=== PATIENT | female | born 1955 | race Caucasian/White ===

== ENCOUNTER 2023-08-31 08:43 | Outpatient (REF) | payer MEDICARE, SELFPAY ==
[2023-08-31 10:26] LABS: Erythrocyte Sedimentation Rate 3 MM/HR (0-20)
[2023-09-01 17:33] LABS: Lyme Abs Screen <0.90 index
== END 2023-08-31 08:44 | disposition home or self-care (01) ==
LOC: HO.LAB 08:43
PROVIDERS: PCP Internal Medicine; Visit Provider Psychiatry & Neurology Neurology
DX: R25.1 Tremor, unspecified (principal)
CPT/HCPCS: 36415; 85652; 86617; 86618

== ENCOUNTER 2025-07-09 08:27 | Outpatient (AMB) | payer MEDICARE, SELFPAY ==
--- OUTSIDE RECORDS SUMMARY | 2025-04-02 05:30 | XMS_ITS ---
Author Organization [facility] [address] Address [address] [place] [address] Care Team Providers Care Die Mounter Name Role Phone NEVA TORRES Primary Care Provider Debby Betancur Unavailable [phone] REASON FOR VISIT labs Medications Medication SIG (Take, Route, Frequency, Duration) Notes Start Date End Date Status Multi For Her - as directed Orally A S NEEDED Active Magnesium Glycinate Active Synthroid 88 MCG 1 tablet in the morning on an empty stomach Orally Once a day; Duration: 90 days 6 days/week Active Cyclobenzaprine HCl 5 MG every 8 hours a s needed Orally Once a day; Duration: 30 days prn 02/07/2021 Active Famotidine 20 MG TAKE 1 TABLET ONCE DAILY; Duration: 90 Active Raloxifene HCl 60 MG TAKE 1 TABLET ONCE DAILY; Duration: 90 Active Verapamil HCl 120 MG 1 tablet Orally onc e daily Active Encounters Encounter Location Date Provider Diagnosis [facility] [address] [address] 04/02/2025 Debby Betancur Plan Of Treatment Next Appt Details Provider Name:Debby Betancur, 0 10/17/2025 08:30:00 AM, [address], [id number], Provider Name:Debby Betancur, 0 07/09/2026 08:00:00 AM, [address] [place] [address], [id number], Progress Notes * SHARMIN PARHAMOB: [birth year] (69 yo F)Acc No.[id number]:04/02/2025 Progress Notes Patient: FELIX JOHNSON Provider: Norris Betancur PA-C :1955 A ge:69 Y S ex:Female Date:04/02/2025 Address:[address] [place] [address], [id number] Pcp:NEVA TORRES Subjective: * Chief Complaints: * 1 . Labs. * Medical History: * Medications: T aking Verapamil HCl 120 MG Tablet 1 tablet Orally once daily , Taking Magnesium Glycinate , Taking Multi For Her - Tablet as directed Orally NEEDED , Taking Cyclobenzaprine HCl 5 MG Tablet every 8 hours as needed Orally Once a day , Notes to Pharmacist: prn, Taking Synthroid 88 MCG Tablet 1 tablet in the morning on an empty stomach Orally Once a day , Notes to Pharmacist: 6 days/week, Taking Famotidine 20 MG Tablet TAKE 1 TABLET ONCE DAILY , Taking Raloxifene HCl 60 MG Tablet TAKE 1 TABLET ONCE DAILY , Discontinued predniSONE 20 MG Tablet 2 tablets Orally Once a day Objective: * Vitals: Assessment: Plan: * Treatment: * Images: Billing Information: * Visit Code: * Procedure Codes: Care Plan Details* * Electronic signature of Debby Betancur PA-C on 07/09/2025 at 08:50 AM EDT Sign off status: Pending * Provider: Norris Betancur PA-C Date: 04/02/2025 Generated for Love diaz/John/Magalys on: 0 07/09/2025 08:50 AM EDT
--- NOTE | 2025-07-09 08:34 | A.OFFVIS_ITS ---
Intake Visit Reasons: 6 Months F/U Allergies No Known Allergies Allergy (Verified 07/05/25 09:23) HPI Comments Details: 69 years old right-handed woman with tremor and idiopathic stabbing type of headaches. She was still having headaches anywhere from 15-50 episodes in a day. It was lasting for a second or so. It was like her brain was jolted. EEG was ok. She is presenting with the requirement for medication refills and the management of headaches. She had encountered issues with her prescription being filled, which she rectified by obtaining a verbal authorization for a local pharmacy fill due to her travel plans. The patient's headaches are described as intermittent and stabbing in nature, occasionally occurring but significantly reduced in frequency since initiating Verapamil. The patient confirmed toleration of the medication, with a lack of significant gastrointestinal side effects such as constipation. She has been compliant with her regimen and successfully adjusted her dosage under medical advice after an initial test dose proved inadequate. Preparing for travel, she has ensured medication continuity and has taken precautions in storing her medications. [facility] Medical History (Updated 07/09/25 @ 08:44 by Kathleen Gonzalez MD) Seizure disorder Migraine Review of Systems Const Details: - Neurologic: Reports headaches - Gastrointestinal: Denies constipation Physical Exam Neuro Other: Mental Status: Alert and oriented to person, place, and time. Normal attention. Normal spontaneous speech, fluency, and comprehension. No obvious issues with mood and memory. Affect is appropriate. Cranial Nerves: CN II: Visual yoo full to confrontation, visual acuity intact. CN III, IV, : Pupils equal, round, reactive to light and accommodation. Extraocular movements are normal. CN V: Facial sensation is normal. CN VII: Facial movements symmetrical. CN VIII: Hearing intact to bedside conversation is normal. CN IX, X: Palate elevates symmetrically. CN XI: Shoulder shrug and head turn symmetrical. CN XII: Tongue midline without atrophy or fasciculations. Extrapyramidal: Full facial expressions and blinking. No rigidity. Movements are appropriate with no tremor or abnormality. Speech: Normal; no dysarthria or tremor. Assessment & Plan Assessment & Plan (1) Idiopathic stabbing headache: Comment: Meds tried: Topiramate, melatonin [facility]ine [facility] Sep [facility]: WNL MRI brain WO [facility] in Jul 2024: No sig change MRI brain WO at [place] in Aug 2023; A few non specific small WM hyperintensities in right frontal area. Code(s): G44.85 - Primary stabbing headache Category: Medical (2) Tremor: Code(s): R25.1 - Tremor, unspecified Category: Medical (3) Migraine: Code(s): G43.909 - Migraine, unspecified, not intractable, without status migrainosus Category: Medical Qualifiers: Migraine type: migraine (< 15 days per month) without aura Status migrainosus presence: without status migrainosus Intractability: not intractable Qualified Code(s): G43.009 - Migraine without aura, not intractable, without status migrainosus Plan During the visit, we discussed the patient's ongoing requirement for Verapamil and its efficacy in managing her headaches. We talked about her previous dose adjustments and current dosage satisfaction, emphasizing caution about side effects such as constipation. The patient has been instructed on medication management during her travel, including taking ample supplies and correctly packaging them. I reassured her about traveling with her medication, noting that it is a non-controlled substance. Follow-up was tentatively set for one year, with contingency if any changes arise. Medications: Refilled verapamil ER 120 mg PO DAILY 90 tabs 3RF Coding Level of Care Code Est Pt Level 4 (24983) Diagnoses Idiopathic stabbing headache G44.85 Tremor R25.1 Migraine without aura and without status migrainosus, not intractable G43.009 Migraine type: migraine (< 15 days per month) without aura Status migrainosus presence: without status migrainosus Intractability: not intractable
--- OUTSIDE RECORDS SUMMARY | 2025-07-09 08:50 | XMS_ITS | Clinical Summary ---
Author Organization [facility] Address [address] [place] [address] Phone Care Team Providers Care Chain Testing Machine Operator Name Role Phone Neva Elkins MD Primary Care Provider [phone] Allergies No known active allergies Medications Synthroid 88 mcg tablet Take 1 tablet (88 mcg total) by mouth 1 (one) time each day before breakfast. 4 Active cyclobenzaprine (FLEXERIL) 5 mg tablet Take 1 tablet (5 mg total) by mouth every 8 (eight) hours if needed for muscle spasms. 4 Active raloxifene (EVISTA) 60 mg tablet Take 1 tablet (60 mg total) by mouth 1 (one) time each day. 4 Active famotidine (PEPCID) 20 mg tablet Take 1 tablet (20 mg total) by mouth 1 (one) time each day. 4 Active mv,calcium,min/ iron/folic/vitK (MULTI FOR HER ORAL) Take by mouth. Activ e magnesium glycinate (MAG GLYCINATE ORAL) Take by mouth. Active verapamiL (CALAN) 40 mg tablet Take 1 tablet (40 mg total) by mouth 3 (three) times a day. Active bisacodyL (DULCOLAX) 5 mg EC tablet Take 2 tablets by mouth right before beginning bowel prep. See instructions provided by the office 2 tablet 5 Active Additional Information Patient not taking.Reported on 02/19/2025 polyethylene glycol (Golytely) 236-22.74-6.74 -5.86 gram solution Take 4L by mouth once for one dose. May substitue any PEG. Starting at 6PM the night before your procedure drink 1 8oz glasses at your own pace until you complete half of the gallon. Finish 2nd half of the gallon 5 hours before your procedure. 4000 mL 5 Active Additional Information Patient not taking.Reported on 02/19/2025 melatonin 10 mg capsule Take 1 capsule (10 mg total) by mouth 1 (one) time each day. 5 Active diclofenac (VOLTAREN) 1 % topical gel APPLY 2 GRAMS TOPICALLY TO THE AFFECTED AREA FOUR TIMES DAILY [address] (ENTOCORT EC) 3 mg 24 hr capsuleIndicati ons:Collagenous colitis Take 3 capsules (9 mg total) by mouth 1 (one) time each day in the morning. After one month decrease to 2 tablets daily, in third month take one tablet daily 90 each 1 5 Active Surgical History Surgery Date Site/Laterality Comments COLONOSCOPY 10/11/2016 - 10/10/2017 TUBAL LIGATION ROTATOR CUFF REPAIR COLONOSCOPY W/ BIOPSIES 01/15/2025 + collangenous colitis, otherwise nl Medical History Medical History Date Comments Osteoporosis Hypothyroid Migraines Social History Tobacco Use Types Packs/Day Years Used Date Smoking Tobacco: Former Cigarettes Smokeless Tobacco: Never Tobacco Cessation:Counseling Given: Not Answered Alcohol Use Standard Drinks/Week Comments Not Currently 0 (1 standard drink = 0.6 oz pur e alcohol) Interpersonal Safety Answer Date Record ed Physical Abuse Unrecognized value 01/15/2025 Verbal Abuse Unrecognized value 01/15/2025 Comments No Sex and Gender Information Value Date Recorded Sex Assigned at Female 01/11/2025 10:27 AM EDT Legal Sex Female 9:56 PM EST Gender Identity Female 01/11/2025 10:27 AM EDT Sexual Orientation Straight 01/11/2025 10 :27 AM EDT Obstetrics History Para Term AB IAB SAB Ectopic Multiple Livin g Live Births 2 Last Filed Vital Signs Vital Sign Reading Time Taken Comments Blood Pressure 106/59 01/15/2025 2:12 PM EDT Pulse 74 01/15/2025 2:12 PM EDT Temperature 36.2 C (97.2 F) 01/15/2025 1:21 PM EDT Respiratory Rate 20 01/15/2025 2:12 PM EDT Oxygen Saturation 99% 01/15/2025 2:12 PM EDT Inhaled Oxygen Concentration - - Weight 67.1 kg (148 lb) 02/19/2025 3:27 PM EDT Height 157.5 cm (5' 2 ) 02/19/2025 3:27 PM EDT Body Mass Index 27.07 02/19/2025 3:27 PM EDT Plan of Treatment Upcoming Encounters Date Type Department Care Team (Late st Contact Info) Description 09/10/2025 8:00 AM EST [facility]ointment [facility] at [address] [phone] Health Maintenance Due Date Last Done Comments Zoster Vaccines (3 of 3) 10/20/2018 018, 05/11/2018, 07/06/2017 Hepatitis C Screening 09/12/2022 Social Influencers of Health Screening 09/12/2022 Medicare Annual Wellness Visit 05/24/2024 05/24/2023 Depression Screening 10/11/2024 Falls Risk Assessment 01/15/2026 01/15/2025 Breast Cancer Screening 09/08/2026 09/08/20 24, 09/06/2023, 09/13/2022, Additional history exists DTaP,Tdap,and Td Vaccines (2 - Td or Tdap) 07/14/2028 07/14/2018 Cholesterol Screening (Lipid Panel) 11/24/2029 11/24/2024 Osteoporosis Screening (Bone Density Screening) 06/16/2034 06/16/2024, 08/28/2021, 08/03/2019 Colorectal Cancer Screening: Colonoscopy 01/15/2035 01/15/2025 RSV Immunization Adult Patients Completed 07/05/2023 Pneumococcal Vaccine: 50+ Years Completed 07/16/2023 COVID-19 Vaccine Completed 06/21/2025, , 07/18/2023, Additional history exists Influenza Vaccine Completed 06/21/2025, , 07/05/2023, Additional history exists HIB Vaccines Aged Out No longer eligi ble based on patient's age to complete this topic HPV Vaccines Aged Out No longer eligi ble based on patient's age to complete this topic Hepatitis A Vaccines Aged Out No long er eligible based on patient's age to complete this topic Hepatitis B Vaccines Aged Out No long er eligible based on patient's age to complete this topic IPV Vaccines Aged Out No longer eligi ble based on patient's age to complete this topic MMR Vaccines Aged Out No longer eligi ble based on patient's age to complete this topic Meningococcal ACWY Vaccine Aged Out N o longer eligible based on patient's age to complete this topic Meningococcal B Vaccine Aged Out No l onger eligible based on patient's age to complete this topic RSV Immunization Patients Under 20 months Aged Out No longer eligible based on patient's age to complete this topic Varicella Vaccines Aged Out No longer eligible based on patient's age to complete this topic Procedures Procedure Name Priority Date/Time Associated Diagnosis Comments URINALYSIS WITH REFLEX MICROSCOPIC Routine 07/02/2025 9:21 AM EDT Burning with urination URINALYSIS WITH REFLEX MICROSCOPIC Routine 07/02/2025 9:21 AM EDT Burning with urination CULTURE URINE Routine 07/02/2025 9:21 AM EDT Burning with urination THYROID STIMULATING HORMONE Routine 06/20/2025 12:18 PM EDT Pain in finger of left hand Left wrist pain Screening for lipoid disorders Vitamin D deficiency disease Hypothyroidism, unspecified type COLONOSCOPY Routine 01/15/2025 1:51 PM EDT Colon cancer screening Diarrhea LIPID PANEL WITH REFLEX TO DIRECT LDL Routine 11/24/2024 8:10 AM EST Pain in finger of left hand Pain in left wrist Screening for lipoid disorders Vitamin D deficiency disease Acquired hypothyroidism MG MAMMO DIGITAL SCREENING W PETER BILAT Routine 09/08/2024 9:34 AM EST Encounter for screening mammogram for breast cancer VIVIANA DEXA AXIAL SKELETON Routine 06/16/2024 9:23 AM EDT Encounter for screening for osteoporosis from Last 3 Months or Most Recently Relevant to Health Maintenance Results * (ABNORMAL) Urinalysis with reflex microscopic (07/02/2025 9:21 AM EDT) Specific [place] Urine 07/02/2025 10:01 AM [facility] Comment:Unable to interpret due to color interference. pH, Urine 07/02/2025 10:01 AM [facility] Comment:Unable to interpret due to color interference. Leukocytes, Urine 07/02/2025 10:01 AM [facility] Comment:Unable to interpret due to color interference. Nitrite, Urine 07/02/2025 10:01 AM [facility] Comment:Unable to interpret due to color interference. Protein, Urine 07/02/2025 10:01 AM [facility] Comment:Unable to interpret due to color interference. Glucose, Urine 07/02/2025 10:01 AM [facility] Comment:Unable to interpret due to color interference. Ketones, Urine 07/02/2025 10:01 AM [facility] Comment:Unable to interpret due to color interference. Urobilinogen, Urine 07/02/2025 10:01 AM [facility] Comment:Unable to interpret due to color interference. Bilirubin, Urine 07/02/2025 10:01 AM [facility] Comment:Unable to interpret due to color interference. Blood, Urine 07/02/2025 10:01 AM [facility] Comment:Unable to interpret due to color interference. RBC, Urine 4.1(H) 0 - 4 /HPF LAB URINALYSIS - AUTOMATED METHOD 07/02/2025 10:01 AM [facility] WBC, Urine 110.7(H) 0 - 4 /HPF LAB URINALYSIS - AUTOMATED METHOD 07/02/2025 10:01 AM [facility] Squamous Epithelial, Urine 2 0 - 60 /LPF LAB URINALYSIS - AUTOMATED METHOD 07/02/2025 10:01 AM EDT [facility] Bacteria, Urine Negative Negative /HPF LAB URINALYSIS - AUTOMATED METHOD 07/02/2025 10:01 AM EDT [facility] Hyaline Casts, Urine 0.8 0 - 3 /LPF LAB URINALYSIS - AUTOMATED METHOD 07/02/2025 10:01 AM EDT [facility] Urine Urine specimen obtained by clean catch procedure / Unknown Non-blood Collection / Unknown 07/02/2025 9:21 AM EDT 07/02/2025 9:45 AM EDT us Debby CAPUTO [facility] URINE ORDERABLES Final Resul t Performing Organization Address [facility]/ZIP Co de Phone Number [facility] [address] [place] [address], [place] [phone] * Culture urine (07/02/2025 9:21 AM EDT) Pathologist [facility] Culture, Urine <10,000 CFU/mL gram positive cocci, insignificant count, no further workup 07/03/2025 10:20 AM EDT [facility] Urine Urine specimen from urethra / Unknown Non-blood Collection / Unknown 07/02/2025 9:21 AM EDT 07/02/2025 9:45 AM EDT us Debby [facility] MICROBIOLOGY - GENERAL ORDER JIE Final Result [facility] [address] [place] [address], [place] [phone] * Thyroid stimulating hormone (06/20/2025 12:18 PM EDT) TSH 0.80 0.40 - 4.00 mcIU/mL LAB CHEMISTRY METHOD 06/20/2025 1:49 PM EDT [facility] Blood Venous blood specimen / Unknown Venipuncture / Unknown 06/20/2025 12:18 PM EDT 06/20/2025 12:34 PM EDT Debby Robray [facility] BLOOD ORDERABLES Final Resul t [facility] ([facility]) [facility] [address] [place] [address], [place] [phone] * COLONOSCOPY Anesthesia - MAC; [facility] ENDOSCOPY (01/15/2025 1:51 PM EDT) Anatomical Region Laterality Modality Other 01/15/2025 1:32 PM EDT Impressions 01/15/2025 1:52 PM EDT - The examined portion of the ileum was normal. - Diverticulosis in the sigmoid colon. - Normal mucosa in the entire examined colon. Biopsied. - The examination was otherwise normal on direct and retroflexion views. Recommendation: - Await pathology results. - Repeat colonoscopy in 10 years for screening purposes. Narrative 01/15/2025 1:52 PM EDT [facility] GI Patient Name: Tara Parham Procedure Date: 01/15/2025 1:32 PM Date of : 1955 Age: 69 Gender: Female Note Status: Finalized Attending MD: Mercedes Maki MD, Procedure Date No Time: 01/15/2025 Procedure: Colonoscopy Indications: Screening for colorectal malignant neoplasm, Incidental diarrhea noted Providers: Mercedes Maki MD Referring MD: Neva Elkins MD Medicines: Propofol per Anesthesia Complications: No immediate complications. Estimated Blood Loss: Estimated blood loss: none. Procedure: Pre-Anesthesia Assessment: - ASA Grade Assessment: II - A patient with mild systemic disease. After I obtained informed consent, the scope was passed under direct vision. Throughout the procedure, the patient's blood pressure, pulse, and oxygen saturations were monitored continuously.The Colonoscope was introduced through the anus and advanced to the terminal ileum. The colonoscopy was performed without difficulty. The patient tolerated the procedure well. The quality of the bowel preparation was good. Findings: The perianal and digital rectal examinations were normal. The terminal ileum appeared normal. A few small-mouthed diverticula were found in the sigmoid colon. Normal mucosa was found in the entire colon. Biopsies for histology were taken with a cold forceps from the entire colon for evaluation of microscopic colitis. The exam was otherwise without abnormality on direct and retroflexion views. Procedure Code(s): --- Professional --- 48730, Colonoscopy, flexible; with biopsy, single or multiple Diagnosis Code(s): --- Professional --- Z12.11, Encounter for screening for malignant neoplasm of colon K57.30, Diverticulosis of large intestine without perforation or abscess without bleeding CPT copyright 2020 [employer]. All rights reserved. The codes documented in this report are preliminary and upon repairer welding equipment review may be revised to meet current compliance requirements. Mercedes Maki MD 01/15/2025 1:52:26 PM This report has been signed electronically.Mercedes Maki MD Number of Addenda: 0 Note Initiated On: 01/15/2025 1:32 PM Scope In: Scope Out: Endoscopy Department at [facility] - [address] [place] [id number] Procedure Note Mercedes Maki MD - 01/15/2025 [facility] GI Patient Name: Tara Parham Procedure Date: 01/15/2025 1:32 PM Date of : 1955 Age: 69 Gender: Female Note Status: Finalized Attending MD: Mercedes Maki MD, Procedure Date No Time: 01/15/2025 Procedure: Colonoscopy Indications: Screening for colorectal malignant neoplasm, Incidental diarrhea noted Providers: Mercedes Maki MD Referring MD: Neva Elkins MD Medicines: Propofol per Anesthesia Complications: No immediate complications. Estimated Blood Loss: Estimated blood loss: none. Procedure: Pre-Anesthesia Assessment: - ASA Grade Assessment: II - A patient with mild systemic disease. After I obtained informed consent, the scope was passed under direct vision. Throughout theprocedure, the patient's blood pressure, pulse, and oxygen saturations were monitored continuously.The Colonoscope was introduced through the anus and advanced to the terminal ileum. The colonoscopy was performed without difficulty. The patient tolerated the procedure well. The quality of the bowel preparation was good. Findings: The perianal and digital rectal examinations were normal. The terminal ileum appeared normal. A few small-mouthed diverticula were found in the sigmoid colon. Normal mucosa was found in the entire colon.Biopsies for histology were taken with a cold forceps fromthe entire colon for evaluation of microscopiccolitis. The exam was otherwise without abnormality ondirect and retroflexion views. Procedure Code(s): --- Professional --- 00850, Colonoscopy, flexible; with biopsy, singleor multiple Diagnosis Code(s): --- Professional --- Z12.11, Encounter for screening for malignantneoplasm of colon K57.30, Diverticulosis of large intestine without perforation or abscess without bleeding CPT copyright 2020 [employer]. All rights reserved. The codes documented in this report are preliminary and upon repairer welding equipment reviewmay be revised to meet current compliance requirements. Mercedes Maki MD 01/15/2025 1:52:26 PM This report has been signed electronically.Mercedes Maki MD Number of Addenda: 0 Note Initiated On: 01/15/2025 1:32 PM Scope In: Scope Out: Endoscopy Department at [facility] - [address] [place] [id number] IMPRESSION: - The examined portion of the ileum was normal. - Diverticulosis in the sigmoid colon. - Normal mucosa in the entire examined colon.Biopsied. - The examination was otherwise normal on directand retroflexion views. Recommendation: - Await pathology results. - Repeat colonoscopy in 10 years for screening purposes. Mercedes Maki MD GI~PROCEDURE ORDERABLES Final Result * Lipid panel with reflex to direct LDL (11/24/2024 8:10 AM EST) Cholesterol 177 0 - 200 mg/dL LAB CHEMISTRY METHOD 11/24/2024 10:10 AM EST [facility] Triglycerides 83 0 - 150 mg/dL LAB CHEMISTRY METHOD 11/24/2024 10:10 AM EST [facility] HDL 61 >=40 mg/dL LAB CHEMISTRY METHOD 11/24/2024 10:10 AM EST [facility] LDL Calculated 99 0 - 100 mg/dL LAB CHEMISTRY METHOD 11/24/2024 10:10 AM EST [facility] VLDL Cholesterol Alvarez 16.6 mg/dL LAB CHEMISTRY METHOD 11/24/2024 10:10 AM EST [facility] Non HDL Chol. (LDL+VLDL) 116 <145 mg/dL LAB CHEMISTRY METHOD 11/24/2024 10:10 AM EST [facility] Chol/HDL Ratio 2.9 0.0 - 4.4 LAB CHEMISTRY METHOD 11/24/2024 10:10 AM EST [facility] Blood Venous blood specimen / Unknown Venipuncture / Unknown 11/24/2024 8:10 AM EST 11/24/2024 9:00 AM EST Debby CAPUTO [facility] BLOOD ORDERABLES Final Resul t [facility] [address] [place] [address], [place] [phone] * MG Mammo Digital Screening w Peter bilat (09/08/2024 9:34 AM EST) Anatomical Region Laterality Modality Breast Bilateral Mammography 09/08/2024 11:3 9 AM EST Impressions 09/08/2024 11:44 AM EST No mammographic evidence of malignancy. No suspicious interval change. A negative mammogram in the presence of a clinically suspicious palpable abnormality does not preclude the possibility of malignancy or alter the indications for biopsy. ASSESSMENT: BI-RADS 1: NEGATIVE RECOMMENDATION(S): 1: Routine screening mammogram BILATERAL in 1 year. -------- FINAL REPORT -------- Dictated By: Zev Iraheta Dictated Date: 09/08/2024 11:39 ET Assigned Physician: Zev Iraheta Reviewed and Electronically Signed By: Zev Iraheta Signed Date: 09/08/2024 11:44 ET Workstation ID: [id number] Transcribed By: Self Edit Transcribed Date: 09/08/2024 11:39 ET Narrative 09/08/2024 11:44 AM EST EXAM: SCREENING MAMMOGRAPHY, BILATERAL HISTORY: SCREENING. No additional history. COMPARISON: 09/06/2023, 08/31/2022, 08/28/2021, 08/23/2020 TECHNIQUE: Synthesized CC and MLO projections of each breast. Tomosynthesis of each breast in the CC and MLO projections. ADDITIONAL IMAGING: None Computer-aided detection was employed with the [employer] profound AI 3-D. TISSUE DENSITY: There are scattered areas of fibroglandular density. (BI-RADS category B) FINDINGS: RIGHT BREAST: No suspicious mass. No suspicious calcification. No distortion. No additional suspicious right breast findings LEFT BREAST: No suspicious mass. No suspicious calcification. No distortion. No additional suspicious left breast findings Procedure Note Zev Iraheta MD - 09/08/2024 EXAM: SCREENING MAMMOGRAPHY, BILATERAL HISTORY: SCREENING. No additional history. COMPARISON: 09/06/2023, 08/31/2022, 08/28/2021, 08/23/2020 TECHNIQUE: Synthesized CC and MLO projections of each breast.Tomosynthesis of each breast in the CC and MLO projections. ADDITIONAL IMAGING: None Computer-aided detection was employed with the [employer] profound AI 3-D. TISSUE DENSITY: There are scattered areas of fibroglandular density.(BI-RADS category B) FINDINGS: RIGHT BREAST: No suspicious mass. No suspicious calcification. No distortion. Noadditional suspicious right breast findings LEFT BREAST: No suspicious mass. No suspicious calcification. No distortion. Noadditional suspicious left breast findings IMPRESSION: No mammographic evidence of malignancy. No suspicious interval change. A negative mammogram in the presence of a clinically suspicious palpableabnormality does not preclude the possibility of malignancy or alter theindications for biopsy. ASSESSMENT: BI-RADS 1: NEGATIVE RECOMMENDATION(S): 1: Routine screening mammogram BILATERAL in 1 year. -------- FINAL REPORT -------- Dictated By: Zev Iraheta Dictated Date: 09/08/2024 11:39 ET Assigned Physician: Zev Iraheta Reviewed and Electronically Signed By: Zev Iraheta Signed Date: 09/08/2024 11:44 ET Workstation ID: [id number] Transcribed By: Self Edit Transcribed Date: 09/08/2024 11:39 ET us Self Referral Sppl IMG BI PROCEDURES Final Resul t * VIVIANA DEXA AXIAL SKELETON (06/16/2024 9:23 AM EDT) Anatomical Region Laterality Modality Mammography 06/16/2024 8:47 AM EDT Narrative 06/16/2024 9:23 AM EDT [facility] Diagnostic Imaging Department [address] [place] [id number] Patient: DIONETARA /Age/Sex: 1955 - 68 - F Unit#: [id number] Location/Status: [facility] CLI Mnemonic[facility] Ordering Physician: NEVA ELKINS MD [facility] Dexa Axial Skeleton - 06/16/24917 Report Status:Signed HISTORY: The patient is a 68-year-old postmenopausal female with clinical concern for metabolic bone disease. FINDINGS: Dual energy x-ray absorptiometry of the lumbar spine and femurs is performed. The mean bone mineral density at L1-2 is 0.877 gm/cm2 which is 75% of that of young normals and 91% of that of age matched controls. This yields a T- score of -2.4 and a Z-score of -0.8 which is diagnostic of osteopenia. The mean bone mineral density of the femurs bilaterally is 0.888 gm/cm2 which is 88% of that of young normals and 106% of that of age matched controls. This yields a T-score of -1.0 and a Z-score of 0.4 and there is therefore no evidence of osteoporosis or osteopenia here. However, the T-score of the right femoral neck is -1.8 and that of the left femoral neck is -1.4 which is diagnostic of osteopenia. IMPRESSION: 1. Osteopenia. There has been an increase of 1.9% in bone mineral density in the lumbar spine since the prior examination of 08/28/2021. There has been a decrease of 3.3% in bone mineral density in the right femur and a decrease of 3.7% in bone mineral density in the left femur. 2. FRAX analysis yields a 10-year probability of major osteoporotic fracture of 10.8% and a 10-year probability of hip fracture of 1.7%. Code 12200 Dictating Physician: DARYL TOURE MD Electronically Signed by: DARYL TOURE MD Dic Date/Time: 06/16/24921 Sign date/Time: 06/16/24922 Procedure Note Daryl Toure MD - 07/26/2024 [facility] Diagnostic Imaging Department [address] [place] [address] Patient: TARA PARHAM Norris Johnson/Age/Sex: 1955 - 68 - F Unit#: [id number] Location/Status: [facility]/REG CLI Mnemonic[facility] Ordering Physician: NEVA ELKINS MD [facility] Dexa Axial Skeleton - 06/16/24917 Report Status:Signed HISTORY: The patient is a 68-year-old postmenopausal female withclinical concern for metabolic bone disease. FINDINGS: Dual energy x-ray absorptiometry of the lumbar spine and femursis performed. The mean bone mineral density at L1-2 is 0.877 gm/cm2 which is75% of that of young normals and 91% of that of age matched controls. This yieldsa T- score of -2.4 and a Z-score of -0.8 which is diagnostic of osteopenia. The mean bone mineral density of the femurs bilaterally is 0.888 gm/hd6svdkv is 88% of that of young normals and 106% of that of age matched controls.This yields a T-score of -1.0 and a Z-score of 0.4 and there is therefore noevidence of osteoporosis or osteopenia here. However, the T-score of the rightfemoral neck is -1.8 and that of the left femoral neck is -1.4 which is diagnosticof osteopenia. IMPRESSION: 1. Osteopenia. There has been an increase of 1.9% in bone mineral densityin the lumbar spine since the prior examination of 08/28/2021. There hasbeen a decrease of 3.3% in bone mineral density in the right femur and a decreaseof 3.7% in bone mineral density in the left femur. 2. FRAX analysis yields a 10-year probability of major osteoporoticfracture of 10.8% and a 10-year probability of hip fracture of 1.7%. Code 07483 Dictating Physician: DARYL TOURE MD Electronically Signed by: DARYL TOURE MD Dic Date/Time: 06/16/24921 Sign date/Time: 06/16/24922 Neva Elkins MD IMG BI PROCEDURES Final Result from Last 3 Months or Most Recently Relevant to Health Maintenance Insurance MEDICARE [facility] Care Teams Chain Testing Machine Operator Relationship Specialty Start Date End Date Neva Elkins MD [address] [place] [address] [place] [address] PCP - General Internal Medicine 12/06/24
--- OUTSIDE RECORDS SUMMARY | 2025-07-09 08:51 | XMS_ITS | Patient Health Record ---
Author Organization [facility] [address] Address [address] [place] [address] Care Team Providers Care Craft Demonstrator Name Role Phone NEVA ELKINS Primary Care Provider DarronDebby bell Unavailable [phone] Allergies No Known Allergies Results Component Value Reference Range Notes CULTURE URINE Reviewed date:07/03/2025 01:43:07 PM Interpretation: Performing Lab: Notes/Report: Culture, Urine <10,000 CFU/mL gram positive cocci, insignificant count, no further workup FERRITIN Reviewed date:04/05/2025 07:53:28 AM Interpretation: Performing Lab: Notes/Report: Ferritin 177 8-252 ng/mL URINALYSIS WITH REFLEX MICRO SCOPIC Reviewed date:07/02/2025 12:40:05 PM Interpretation: Performing Lab: Notes/Report: Specific Rossiter Urine See Report Unable to interpret due to color interference. pH, Urine See Report Unable to inter pret due to color interference. Leukocytes, Urine See Report Unable to interpret due to color interference. Nitrite, Urine See Report Unable to int erpret due to color interference. Protein, Urine See Report Unable to int erpret due to color interference. Glucose, Urine See Report Unable to int erpret due to color interference. Ketones, Urine See Report Unable to int erpret due to color interference. Urobilinogen, Urine See Report Unable t o interpret due to color interference. Bilirubin, Urine See Report Unable to i nterpret due to color interference. Blood, Urine See Report Unable to inter pret due to color interference. RBC, Urine 4.1 0-4 /HPF WBC, Urine 110.7 0-4 /HPF Squamous Epithelial, Urine 2 0-60 /LPF Bacteria, Urine Negative Negative /HPF Hyaline Casts, Urine 0.8 0-3 /LPF COMPREHENSIVE METABOLIC PANE L Reviewed date:04/05/2025 07:56:57 AM Interpretation: Performing Lab: Notes/Report: Sodium 142 133-145 mmol/L Potassium 3.8 3.5-5.5 mmol/L Chloride 106 96-110 mmol/L CO2 29 21-32 mmol/L Anion Gap 7 3-11 Glucose 49 70-100 mg/dL BUN 13 5-25 mg/dL Creatinine 0.68 0.50-1.10 mg/dL eGFR 94 >=60 mL/min/1.73m2 Calculation based on the Chronic Kidney Disease Epidemiology Collaboration (CKD-EPI) equation refit without adjustment for race. BUN/Creatinine Ratio 19.1 Calcium 8.5 8.5-10.5 mg/dL AST (SGOT) 20 10-42 unit/L ALT (SGPT) 27 10-60 unit/L Alkaline Phosphatase 79 42-121 unit/L Total Protein 6.2 6.0-8.0 g/dL Albumin 3.3 3.2-5.0 g/dL Total Bilirubin 0.3 0.0-1.4 mg/dL MAGNESIUM Reviewed date:04/05/2025 07:53:47 AM Interpretation: Performing Lab: Notes/Report: Magnesium 1.9 1.9-2.6 mg/dL CBC WITH AUTO DIFFERENTIAL Reviewed date:04/05/2025 07:54:04 AM Interpretation: Performing Lab: Notes/Report: WBC 7.9 4.8-10.8 K/mcL RBC 4.60 3.80-4.80 M/mcL Hemoglobin 13.4 11.5-16.0 g/dL Hematocrit 42.7 35.0-47.0 % MCV 93.4 79.0-98.0 FL MCH 29.3 27.0-32.0 pcg MCHC 31.4 32.0-37.0 g/dL RDW 13.6 11.0-15.0 % Platelets 251 130-400 K/mcL MPV 10.2 7.0-11.0 FL NRBC 0.0 <1.0 % NRBC Absolute 0.00 <0.10 K/mcL Neutrophils Relative 65.7 Lymphocytes Relative 20.9 Monocytes Relative 11.2 Eosinophils Relative 1.3 Basophils Relative 0.5 Immature Granulocytes Relative 0.4 Neutrophils Absolute 5.21 1.50-7.00 K/mcL Lymphocytes Absolute 1.66 1.00-5.00 K/mcL Monocytes Absolute 0.89 0.20-1.00 K/mcL Eosinophils Absolute 0.10 0.00-0.50 K/mcL Basophils Absolute 0.04 0.00-0.20 K/mcL Immature Granulocytes Absolute 0.03 0.00-0.03 K/mcL THYROID STIMULATING HORMONE Reviewed date:06/20/2025 02:49:36 PM Interpretation: Performing Lab: Notes/Report: TSH 0.80 0.40-4.00 mcIU/mL THYROID STIMULATING HORMONE Reviewed date:01/10/2025 09:12:47 AM Interpretation: Performing Lab: Notes/Report: TSH 1.43 0.40-4.00 mcIU/mL THYROID STIMULATING HORMONE Reviewed date:12/07/2024 12:24:52 PM Interpretation: Performing Lab: Notes/Report: TSH 3.57 0.40-4.00 mcIU/mL TISSUE EXAM Reviewed date:01/17/2025 01:59:08 PM Interpretation: Performing Lab: Notes/Report: Final Diagnosis A. Colon, random biopsies: - Colonic mucosa with superficial lymphoplasmacytosis, increased intraepithelial lymphocytes, and mild basement membrane thickening, compatible with collagenous colitis. - Special stain: - Trichrome: shows mild basement membrane thickening. Note: Trichrome stain was performed and was medically necessary to evaluate basement membrane thickness for diagnosis of collagenous colitis. Gross Description A. Colon, random biopsies: Labeled colon random . Received in formalin are nine irregular de oliveira mucosal tissue fragments, ranging from 0.1 cm to 0.5 cm in greatest dimension, which are wrapped in paper and submitted in toto in two cassettes, five pieces and four pieces, respectively, multiple levels on each slide. KAYLI Disclaimer NOTE: The immunohistochemical tests and in situ hybridization tests were developed and their performance characteristics were determined by [facility]. They have not been cleared or approved by the U.S. Food and Drug Administration. The FDA has determined that such clearance or approval is not necessary. These tests are used for clinical purposes. They should not be regarded as investigational or for research. This laboratory is certified under the Clinical Laboratory Improvement Amendments of 1988 (CLIA) as qualified to perform high complexity clinical laboratory testing. (controls appropriate) Unless otherwise specified, all tissue is 10% NB formalin fixed and paraffin embedded. VITAMIN D 25 HYDROXY Reviewed date:11/24/2024 10:30:56 AM Interpretation: Performing Lab: Notes/Report: Vit D, 25-Hydroxy 35.5 30.0-80.0 ng/mL MG MAMMO DIGITAL SCREENING W [place] BILAT Reviewed date:09/11/2024 08:51:35 AM Interpretation: Performing Lab: Notes/Report: Note See Note [facility], a member of [facility] Patient Name: FELIX PARHAM Date of : 1955 Reason for Exam: Exam Date: 09/08/2024 [id number] EST Report Status: Final Ordering Provider: SELF REFERRAL SPPL PCP: NEVA ELKINS EXAM: SCREENING MAMMOGRAPHY, BILATERAL HISTORY: SCREENING. No additional history. COMPARISON: 09/06/20 23, 08/31/2022, 08/28/2021, 08/23/2020 TECHNIQUE: Synthesiz ed CC and MLO projections of each breast. Tomosynthesis of each breast in the CC and MLO projections. ADDITIONAL IMAGING: None Computer-aided detec tion was employed with the iCAD profound AI 3-D. TISSUE DENSITY: Ther e are scattered areas of fibroglandular density. (BI-RADS category B) FINDINGS: RIGHT BREAST: No suspicious mass. No suspicious calcification. No distortion. No additional suspicious right breast findings LEFT BREAST: No suspicious mass. No suspicious calcification. No distortion. No additional suspicious left breast findings IMPRESSION: No mammographic evid ence of malignancy. No suspicious interv al change. A negative mammogram in the presence of a clinically suspicious palpable abnormality does not preclude the possibility of malignancy or alter the indications for biopsy. ASSESSMENT: BI-RADS 1: NEGATIVE RECOMMENDATION(S): 1: Routine screening mammogram BILATERAL in 1 year. -------- FINAL REPOR T -------- Dictated By: Zev Del Castillo Dictated Date: 09/08 11:39 ET Assigned Physician: Zev Iraheta Reviewed and Electronically Signed By: Zev Iraheta Signed Date: 11:44 ET Workstation ID: [id number] Transcribed By: Self Edit Transcribed Date: 09/08/2024 11:39 ET COMPREHENSIVE METABOLIC PANE L Reviewed date:11/24/2024 10:31:13 AM Interpretation: Performing Lab: Notes/Report: Sodium 139 133-145 mmol/L Potassium 4.0 3.5-5.5 mmol/L Chloride 104 96-110 mmol/L CO2 31 21-32 mmol/L Anion Gap 4 3-11 Glucose 82 70-100 mg/dL BUN 13 5-25 mg/dL Creatinine 0.67 0.50-1.10 mg/dL eGFR 95 >=60 mL/min/1.73m2 Calculation based on the?Chronic Kidney Disease Epidemiology Collaboration (CKD-EPI) equation refit?without adjustment for race. BUN/Creatinine Ratio 19.4 Calcium 8.9 8.5-10.5 mg/dL AST (SGOT) 18 10-42 unit/L ALT (SGPT) 21 10-60 unit/L Alkaline Phosphatase 73 42-121 unit/L Total Protein 6.4 6.0-8.0 g/dL Albumin 3.3 3.2-5.0 g/dL Total Bilirubin 0.4 0.0-1.4 mg/dL LIPID PANEL WITH REFLEX TO D IRECT LDL Reviewed date:11/24/2024 10:13:51 AM Interpretation: Performing Lab: Notes/Report: Cholesterol 177 0-200 mg/dL Triglycerides 83 0-150 mg/dL HDL 61 >=40 mg/dL LDL Calculated 99 0-100 mg/dL VLDL Cholesterol Alvarez 16.6 Non HDL Chol. (LDL+VLDL) 116 <145 mg/dL Chol/HDL Ratio 2.9 0.0-4.4 CBC WITH AUTO DIFFERENTIAL Reviewed date:11/24/2024 10:12:04 AM Interpretation: Performing Lab: Notes/Report: WBC 7.0 4.8-10.8 K/mcL RBC 4.50 3.80-4.80 M/mcL Hemoglobin 13.3 11.5-16.0 g/dL Hematocrit 41.0 35.0-47.0 % MCV 91.3 79.0-98.0 FL MCH 29.6 27.0-32.0 pcg MCHC 32.4 32.0-37.0 g/dL RDW 13.3 11.0-15.0 % Platelets 223 130-400 K/mcL MPV 9.9 7.0-11.0 FL NRBC 0.0 <1.0 % NRBC Absolute 0.00 <0.10 K/mcL Neutrophils Relative 66.7 Lymphocytes Relative 17.4 Monocytes Relative 13.0 Eosinophils Relative 2.0 Basophils Relative 0.6 Immature Granulocytes Relative 0.3 Neutrophils Absolute 4.67 1.50-7.00 K/mcL Lymphocytes Absolute 1.22 1.00-5.00 K/mcL Monocytes Absolute 0.91 0.20-1.00 K/mcL Eosinophils Absolute 0.14 0.00-0.50 K/mcL Basophils Absolute 0.04 0.00-0.20 K/mcL Immature Granulocytes Absolute 0.02 0.00-0.03 K/mcL THYROID STIMULATING HORMONE Reviewed date:04/03/2025 08:47:00 AM Interpretation: Performing Lab: Notes/Report: TSH 1.59 0.40-4.00 mcIU/mL XR FINGERS 2+ VIEWS LEFT Reviewed date:2024 10:41:41 AM Interpretation: Performing Lab: Notes/Report: Note See Note [facility], a member of [facility] Patient Name: FELIX PARHAM Date of : 1955 Reason for Exam: pain Exam Date: 09/12/2024 [id number] EST Report Status: Final Ordering Provider: DEBBY MACIAS PCP: NEVA ELKINS History: Left thumb pain. Findings: An AP view of the le ft hand and AP and lateral views of the left thumb are submitted without comparison studies. The first carpal metacarpal joint space is narrowed, with marginal osteophytes. No fracture or dislocation is identified in the included osseous structures. The overlying soft tissues are unremarkable. IMPRESSION: Impression: Osteoarthritis of th e first carpometacarpal joint. -------- FINAL REPOR T -------- Dictated By: Nataly Rm i Dictated Date: 09/12 15:31 ET Assigned Physician: Nataly Winter Reviewed and Electronically Signed By: Nataly Winter Signed Date: 15:33 ET Workstation ID: [id number] Transcribed By: Self Edit Transcribed Date: 09/12/2024 15:31 ET Medications Medication SIG (Take, Route, Frequency, Duration) Notes Start Date End Date Status Verapamil HCl ER 120 MG 1 tablet Orally Once a day; Duration: 90 days 07/02/2025 Active Synthroid 88 MCG 1 tablet in the morning on an empty stomach Orally Once a day; Duration: 90 days 6 days/week Active Multi For Her - as directed Orally A S NEEDED Active Magnesium Glycinate Active Verapamil HCl 120 MG 1 tablet Orally onc e daily Active Famotidine 20 MG TAKE 1 TABLET ONCE DAILY; Duration: 90 Active Cyclobenzaprine HCl 5 MG every 8 hours a s needed Orally Once a day; Duration: 7 days prn 02/07/2021 Active Diclofenac Sodium 75 MG 1 tablet Orally daily; Duration: 20 days As needed Active Raloxifene HCl 60 MG TAKE 1 TABLET ONCE DAILY; Duration: 90 Active Immunizations Vaccine Route Administration Date Status Comme nts influenza IM Intramuscular 07/24/2020 Administered Influenza, high dose seasonal IM Intramuscular 06/21/2018 Administered SHINGRIX Unknown 07/11/2017 Administered SHINGRIX Unknown 05/11/2018 Administered Tdap IM Intramuscular 07/14/2018 Administered Social History Tobacco Use: Social History Observation Description Date Details (start date - stop date) Former Smoker NA - NA Tobacco Use/Smoking Question Answer Notes Are you a former smoker Section Notes: Quit Smoking 1980 about 1pk a day Quit Smoking 1980 about 1pk a day Quit Smoking 1980 about 1pk a day Quit Smoking 1980 about 1pk a day Quit Smoking 1980 about 1pk a day Quit Smoking 1980 about 1pk a day Quit Smoking 1980 about 1pk a day Quit Smoking 1980 about 1pk a day Quit Smoking 1980 about 1pk a day Quit Smoking 1980 about 1pk a day Quit Smoking 1980 about 1pk a day Quit Smoking 1980 about 1pk a day Quit Smoking 1980 about 1pk a day Quit Smoking 1980 about 1pk a day Quit Smoking 1980 about 1pk a day Quit Smoking 1980 about 1pk a day Quit Smoking 1980 about 1pk a day Quit Smoking 1980 about 1pk a day Quit Smoking 1980 about 1pk a day Quit Smoking 1980 about 1pk a day Quit Smoking 1980 about 1pk a day Quit Smoking 1979 about 1pk a day Problems Problem Type SNOMED Code ICD Code Onset Dates Problem Status W/U Status Risk Notes Problem Hypothyroidism (58204869) Hypothyroidism, unspecified (E03.9) Active confirmed Problem Vitamin D deficiency (68951513) Vitamin D deficiency, unspecified (E55.9) Active confirmed Problem Hyperlipidemia (60326504) Hyperlipidemia, unspecified (E78.5) Active confirmed Problem Essential tremor (726404013) Essential tremor (G25.0) Active confirmed Problem Age-related osteoporosis (191759225) Age-related osteoporosis without current pathological fracture (M81.0) Active confirmed Problem Adult health examination (243495423) Encounter for general adult medical examination without abnormal findings (Z00.00) Active confirmed Problem Screening for osteoporosis (878650332) Encounter for screening for osteoporosis (Z13.820) Active confirmed Problem Colon cancer screening (454017653) Colon cancer screening (Z12.11) Active confirmed Problem Hypothyroidism (95742227) Hypothyroidism, unspecified type (E03.9) Active confirmed Problem Cataract (331005646) Cataract, unspecified cataract type, unspecified laterality (H26.9) Active confirmed Problem Vitamin D deficiency (23558956) Vitamin D deficiency (E55.9) Active confirmed Problem Gastroesophageal reflux disease without esophagitis (898902181) Gastroesophageal reflux disease without esophagitis (K21.9) Active confirmed Problem Obstructive sleep apnea (68776523) Obstructive sleep apnea (G47.33) Active confirmed Problem Sleep apnea (42156270) Sleep apnea in adult (G47.30) Active confirmed Problem Age-related osteoporosis (688041515) Osteoporosis without current pathological fracture, unspecified osteoporosis type (M81.0) Active confirmed Problem Acute cough (271689225983040846 ) Acute cough (R05.1) Active confirmed Problem Lipid screening (581816376) Lipid screening (Z13.220) Active confirmed Problem Eruptive melanocytic nevi (791558958) Benign nevus without atypia (D22.9) Active confirmed Problem Hypothyroid (74921524) Hypothyroid (E03.9) Active confirmed Problem Pain in finger (82858231) Thumb pain, unspecified laterality (M79.646) Active confirmed Problem Localized, primary osteoarthritis of the hand (352985099) Osteoarthritis of left thumb (M18.12) Active confirmed Problem Idiopathic stabbing headache (073834509) Stabbing headache (G44.85) Active confirmed Problem Microscopic colitis (743176438) Microscopic colitis, unspecified microscopic colitis type (K52.839) Active confirmed Vital Signs Heart Rate 89 /min 07/02/2025 Oximetry 97 % 07/02/2025 Blood pressure diastolic 76 mm Hg 07/02/2025 Height 63 in 07/02/2025 Blood pressure systolic 122 mm Hg 07/02/2025 Weight 147 lbs 07/02/2025 BMI 26.04 kg/m2 07/02/2025 Encounters Encounter Location Date Provider Diagnosis [facility] [address] 09/12/2024 Debby Svrcek Pain of left thumb M 79.645 and Left wrist pain M25.532 [facility] [address] 09/19/2024 Debby Svrcek Pain of left thumb M 79.645 ; Osteoarthritis of left thumb M18.12 ; Vitamin D deficiency E55.9 and Hypothyroid E03.9 [facility] [address] 12/06/2024 Debby Svrcek Hypothyroidism, unspecified E03.9 ; Stabbing headache G44.85 and Osteoporosis without current pathological fracture, unspecified osteoporosis type M81.0 [facility] [address] 01/16/2025 Debby Svrcek Hypothyroidism, unspecified E03.9 ; Stabbing headache G44.85 ; Osteoporosis without current pathological fracture, unspecified osteoporosis type M81.0 and Diarrhea, unspecified type R19.7 [facility] [address] 04/04/2025 Debby Svrcek Nocturnal leg cramps G47.62 ; Microscopic colitis, unspecified microscopic colitis type K52.839 ; Acute low back pain without sciatica, unspecified back pain laterality M54.50 ; Hypothyroidism, unspecified E03.9 and Encounter for examination of blood pressure without abnormal findings Z01.30 [facility] [address] 07/02/2025 Debby Svrcek Stabbing headache G4 4.85 ; Annual physical exam Z00.00 ; Burning with urination R30.0 ; Encounter for screening for other disorder Z13.89 ; Alcohol screening Z13.39 and Encounter for examination of blood pressure without abnormal findings Z01.30 [facility] [place] [address] 07/20/[address] [facility] [address] [place] [address] 07/26/2024 TALAL ELKINS Adult general medica l exam Z00.00 [facility] [address] [place], [place] 09/12/2024 TALAL ELKINS [facility] [address] [place] [address] 09/22/2024 TALAL ELKINS [facility] [address] [place], [place] 09/26/2024 Debby Svrcek [facility] [address] [place] [address] 12/06/2024 TALAL ELKINS [facility] [address] [place], [place] 12/13/2024 Debby Svrcek Hypothyroidism, unspecified type E03.[address] [address] [place] [address] 12/29/2024 TALAL ELKINS [facility] [address] [place], [place] 02/28/2025 TALAL ELKINS [facility] [address] [place], [place] 04/05/2025 Debby Svrcek [facility] [address] [place] [address] 07/03/2025 TALAL ELKINS Hypothyroidism, unspecified type E03.9 [facility] [address] 07/05/2025 Debby Svrcek [facility] [address] [place], [place] 07/31/2024 TALAL ELKINS [facility] [address] [place] [address] 12/06/2024 Debby Svrcek [facility] [address] [place] 12/06/2024 Debby Svrcek Assessments Encounter Date Diagnosis (ICD Code) Assessment Notes Treatment Notes Treatment Clinical Notes Section Notes 07/26/2024 Adult general medical exam (ICD-10 - Z00.00) 09/12/2024 Left wrist pain (ICD-10 - M25.532) #Left thumb and wrist pain. Significant tenderness at base of left thumb with slight radiation to wrist forearm. She has done repetitive motion activities but no significant trauma. Question arthritis plus or minus tenosynovitis. Will get x-ray to further evaluate joint space. Start prednisone burst. Reviewed risk benefits adverse effects of medication in detail with patient. Follow-up in 1 to 2 weeks. Continue wrist splint. Follow-up sooner with any new or worsening symptoms. Case discussed with collaborating physician Goyo Elkins who reviewed the assessment and plan. Chart, medications, labs, vital signs reviewed. Dictation was accomplished with the use of [employer] voice recognition software, prone to medical misidentifications and grammatical errors. This is unintentional and the practitioner does try to identify and correct these, but some could still be present. Please do not hesitate to contact practitioner for clarification. All questions answered to patients satisfaction. Patient verbalized understanding of diagnosis and treatments explained. To call sooner prior to next visit it any questions/concerns arise. 09/12/2024 Pain of left thumb (ICD-10 - M79.645) #Left thumb and wrist pain. Significant tenderness at base of left thumb with slight radiation to wrist forearm. She has done repetitive motion activities but no significant trauma. Question arthritis plus or minus tenosynovitis. Will get x-ray to further evaluate joint space. Start prednisone burst. Reviewed risk benefits adverse effects of medication in detail with patient. Follow-up in 1 to 2 weeks. Continue wrist splint. Follow-up sooner with any new or worsening symptoms. Case discussed with collaborating physician Goyo Elkins who reviewed the assessment and plan. Chart, medications, labs, vital signs reviewed. Dictation was accomplished with the use of [employer] voice recognition software, prone to medical misidentifications and grammatical errors. This is unintentional and the practitioner does try to identify and correct these, but some could still be present. Please do not hesitate to contact practitioner for clarification. All questions answered to patients satisfaction. Patient verbalized understanding of diagnosis and treatments explained. To call sooner prior to next visit it any questions/concerns arise. 09/19/2024 Pain of left thumb (ICD-10 - M79.645) #OA Left thumb. X-ray done last week was consistent with osteoarthritis. She did complete 5 days of prednisone with significant improvement of symptoms. About 60% better at this time. Will continue [id number] anti-inflammatories as needed and splint. Will refer to hand specialist for consideration of steroid injection if symptoms persist. Discussed activity modification. Monitor for any new or worsening symptoms follow-up as needed. #Hypothyroidism. Will be due for updated labs prior to her next visit. #Vit D deficiency- CHeck labs prior to next visit in November. Case discussed with collaborating physician Goyo Elkins who reviewed the assessment and plan. Chart, medications, labs, vital signs reviewed. Dictation was accomplished with the use of [employer] voice recognition software, prone to medical misidentifications and grammatical errors. This is unintentional and the practitioner does try to identify and correct these, but some could still be present. Please do not hesitate to contact practitioner for clarification. All questions answered to patients satisfaction. Patient verbalized understanding of diagnosis and treatments explained. To call sooner prior to next visit it any questions/concerns arise. 09/19/2024 Osteoarthritis of left thumb (ICD-10 - M18.12) #OA Left thumb. X-ray done last week was consistent with osteoarthritis. She did complete 5 days of prednisone with significant improvement of symptoms. About 60% better at this time. Will continue [id number] anti-inflammatories as needed and splint. Will refer to hand specialist for consideration of steroid injection if symptoms persist. Discussed activity modification. Monitor for any new or worsening symptoms follow-up as needed. #Hypothyroidism. Will be due for updated labs prior to her next visit. #Vit D deficiency- CHeck labs prior to next visit in November. Case discussed with collaborating physician Goyo Elkins who reviewed the assessment and plan. Chart, medications, labs, vital signs reviewed. Dictation was accomplished with the use of [employer] voice recognition software, prone to medical misidentifications and grammatical errors. This is unintentional and the practitioner does try to identify and correct these, but some could still be present. Please do not hesitate to contact practitioner for clarification. All questions answered to patients satisfaction. Patient verbalized understanding of diagnosis and treatments explained. To call sooner prior to next visit it any questions/concerns arise. 12/06/2024 Hypothyroidism, unspecified (ICD-10 - E03.9) #Hypothyroidism. Currently on levothyroxine 88 mcg 6 days a week. Unfortunately TSH was not drawn with her recent labs. Will get updated levels today and follow-up pending results. She has had some looser bowel movements this past week. #Stabbing headache syndrome. Followed by neurology. Recently started on verapamil. She gets 10-40 episodes a day. Medication has helped some but they have not resolved. #Osteoporosis. Currently on Raloxifene. Schedule updated colonoscopy. Follow-up with me in 6 months for annual physical sooner with any concerns. Case discussed with collaborating physician Goyo Elkins who reviewed the assessment and plan. Chart, medications, labs, vital signs reviewed. Dictation was accomplished with the use of [employer] voice recognition software, prone to medical misidentifications and grammatical errors. This is unintentional and the practitioner does try to identify and correct these, but some could still be present. Please do not hesitate to contact practitioner for clarification. All questions answered to patients satisfaction. Patient verbalized understanding of diagnosis and treatments explained. To call sooner prior to next visit it any questions/concerns arise. 12/06/2024 Stabbing headache (ICD-10 - G44.85) #Hypothyroidism. Currently on levothyroxine 88 mcg 6 days a week. Unfortunately TSH was not drawn with her recent labs. Will get updated levels today and follow-up pending results. She has had some looser bowel movements this past week. #Stabbing headache syndrome. Followed by neurology. Recently started on verapamil. She gets 10-40 episodes a day. Medication has helped some but they have not resolved. #Osteoporosis. Currently on Raloxifene. Schedule updated colonoscopy. Follow-up with me in 6 months for annual physical sooner with any concerns. Case discussed with collaborating physician Goyo Elkins who reviewed the assessment and plan. Chart, medications, labs, vital signs reviewed. Dictation was accomplished with the use of [employer] voice recognition software, prone to medical misidentifications and grammatical errors. This is unintentional and the practitioner does try to identify and correct these, but some could still be present. Please do not hesitate to contact practitioner for clarification. All questions answered to patients satisfaction. Patient verbalized understanding of diagnosis and treatments explained. To call sooner prior to next visit it any questions/concerns arise. 12/13/2024 Hypothyroidism, unspecified type (ICD-10 - E03.9) 01/16/2025 Hypothyroidism, unspecified (ICD-10 - E03.9) #Hypothyroidism. Currently on levothyroxine 88 mcg 7 days a week. TSH in range. Will recheck again in 3 months. #Stabbing headache syndrome. Followed by neurology. Recently started on verapamil 120 mg XR at bedtime. S #Osteoporosis. Currently on Raloxifene. #Frequent Bowel movements. She had colonoscopy done yesterday which showed mild diverticulosis and was otherwise normal. They did do random biopsies and those results are still pending. Advised to follow-up with gastroenterology to discuss next steps. We did discuss FODMAP diet as a potential option. Case discussed with collaborating physician Goyo Elkins who reviewed the assessment and plan. Chart, medications, labs, vital signs reviewed. Dictation was accomplished with the use of [employer] voice recognition software, prone to medical misidentifications and grammatical errors. This is unintentional and the practitioner does try to identify and correct these, but some could still be present. Please do not hesitate to contact practitioner for clarification. All questions answered to patients satisfaction. Patient verbalized understanding of diagnosis and treatments explained. To call sooner prior to next visit it any questions/concerns arise. 01/16/2025 Stabbing headache (ICD-10 - G44.85) #Hypothyroidism. Currently on levothyroxine 88 mcg 7 days a week. TSH in range. Will recheck again in 3 months. #Stabbing headache syndrome. Followed by neurology. Recently started on verapamil 120 mg XR at bedtime. S #Osteoporosis. Currently on Raloxifene. #Frequent Bowel movements. She had colonoscopy done yesterday which showed mild diverticulosis and was otherwise normal. They did do random biopsies and those results are still pending. Advised to follow-up with gastroenterology to discuss next steps. We did discuss FODMAP diet as a potential option. Case discussed with collaborating physician Goyo Elkins who reviewed the assessment and plan. Chart, medications, labs, vital signs reviewed. Dictation was accomplished with the use of [employer] voice recognition software, prone to medical misidentifications and grammatical errors. This is unintentional and the practitioner does try to identify and correct these, but some could still be present. Please do not hesitate to contact practitioner for clarification. All questions answered to patients satisfaction. Patient verbalized understanding of diagnosis and treatments explained. To call sooner prior to next visit it any questions/concerns arise. 04/04/2025 Nocturnal leg cramps (ICD-10 - G47.62) #Nocturnal leg cramps. New onset in the past 10 days. No new activities or medications. Discussed importance of hydration. She is currently taking a magnesium supplement at bedtime. Will get updated labs and follow-up pending results. Discussed pushing fluids and stretching especially before bedtime. Also discussed good supportive footwear throughout the day. Follow-up pending results. #Microscopic colitis. Noted on biopsies taken during recent colonoscopy. She was started on budesonide tapering dose by GI and diarrhea has resolved. Will be tapering off in the next 2 weeks. Following with GI. #Low back pain. Recurrent low back pain with spasm intermittently every 1 to 2 months. Typically uses cyclobenzaprine and diclofenac as needed for 2 to 3 days during each episode. She has run out of medication and will be traveling. Will send refill to have on hand. Follow-up if symptoms should persist. #Hypothyroidism. Currently on levothyroxine 88 mcg 7 days a week. TSH in range. Will recheck again in 3 months. Case discussed with collaborating physician Goyo Elkins who reviewed the assessment and plan. Chart, medications, labs, vital signs reviewed. Dictation was accomplished with the use of [employer] voice recognition software, prone to medical misidentifications and grammatical errors. This is unintentional and the practitioner does try to identify and correct these, but some could still be present. Please do not hesitate to contact practitioner for clarification. All questions answered to patients satisfaction. Patient verbalized understanding of diagnosis and treatments explained. To call sooner prior to next visit it any questions/concerns arise. 04/04/2025 Microscopic colitis, unspecified microscopic colitis type (ICD-10 - K52.839) #Nocturnal leg cramps. New onset in the past 10 days. No new activities or medications. Discussed importance of hydration. She is currently taking a magnesium supplement at bedtime. Will get updated labs and follow-up pending results. Discussed pushing fluids and stretching especially before bedtime. Also discussed good supportive footwear throughout the day. Follow-up pending results. #Microscopic colitis. Noted on biopsies taken during recent colonoscopy. She was started on budesonide tapering dose by GI and diarrhea has resolved. Will be tapering off in the next 2 weeks. Following with GI. #Low back pain. Recurrent low back pain with spasm intermittently every 1 to 2 months. Typically uses cyclobenzaprine and diclofenac as needed for 2 to 3 days during each episode. She has run out of medication and will be traveling. Will send refill to have on hand. Follow-up if symptoms should persist. #Hypothyroidism. Currently on levothyroxine 88 mcg 7 days a week. TSH in range. Will recheck again in 3 months. Case discussed with collaborating physician Goyo Elkins who reviewed the assessment and plan. Chart, medications, labs, vital signs reviewed. Dictation was accomplished with the use of [employer] voice recognition software, prone to medical misidentifications and grammatical errors. This is unintentional and the practitioner does try to identify and correct these, but some could still be present. Please do not hesitate to contact practitioner for clarification. All questions answered to patients satisfaction. Patient verbalized understanding of diagnosis and treatments explained. To call sooner prior to next visit it any questions/concerns arise. 07/02/2025 Stabbing headache (ICD-10 - G44.85) #Annual physical. Up-to-date on routine screenings and immunizations. Continue healthy diet and regular exercise. PHQ-9 . AUDIT-C 0. #Stabbing headache syndrome. Much improved on verapamil 120 mg extended release. She is followed by neurology and has upcoming appointment on the . She is having trouble getting her refill on this medication through their office. She will be leaving for [place] in 10 days. Refill sent today. She will discuss further with their office at their follow-up visit. #Dysuria. Symptoms time 1 to 2 days. No fever, abdominal pain or back pain. Push fluids will get UA and culture today follow-up pending results. Follow-up sooner with any new or worsening symptoms. Comprehensive discussion was done on the following. 1. Nutrition: It is important to follow a healthy diet based on lots of vegetables and legumes and good fat. Avoid processed food and processed carbohydrates. Learn to prepare your own meals. Learn to read labels and avoid high fructose corn syrup, processed chemicals added to increase shelf life and preprepared meals. Avoid fast foods. Learn to eat slowly and plan meals for a week. Try to count calories and be mindful off daily calorie intake. Get into the habit of keeping an eye on your weight by using an appropriate scale. Learn to log exercise and discussed fitness Apps like [employer] which can help keep log off calories taken versus calories burned. Local food should be preferred. Discussed Dirty Dozen Versus Clean Fifteen. Discussed healthy supplements like fish oil, Tumeric, Curcumin, Melatonin, Resveratrol, Probiotics, Vitamin-D, Alpha-Lipoic acid, Vitamin-D and coconut oil. 2. It is important to exercise regularly. Is a good habit to walk at least 30-45 minutes a day. Gentle weightlifting with standard precautions to protect the back. Finding activity like cycling or hiking and get into the habit of engaging in it. Stretching before and after the exercises important. It is also important to contact me if there are any problems like shortness of breath, chest pain, back pain and joint or muscle pain associated with the exercise. 3. Discussed age appropriate screening guidelines. Colonoscopy needs to start at age 50 with stool for occult blood as appropriate. There is a new test that can test for genetic abnormalities in the stool sample. This would not replace a colonoscopy but could be used as a screening tool for patients who do not want a colonoscopy. We discussed the importance of early detection of colon cancer. 4. Discussed current guidelines with respect to breast examination, mammogram and pap smear for early detection of breast and cervical cancer. Patient advised to follow up with these appointments. 5. Discussed safe driving and no use of smart phone while driving 6. Age-appropriate immunizations were discussed. A tetanus booster is needed every 10 years. Flu vaccine is recommended every year just before the start of the flu season. Shingles vaccine is recommended after age 50 but not all insurances cover it.Pneumonia vaccine is given after age 65 unless there are certain comorbidities for which it is started earlier. 7. Diagnostic labs were discussed. These could include CBC CMP and lipids with fasting blood glucose and insulin levels. Vitamin D and hemoglobin A1c testing might be appropriate. Case discussed with collaborating physician Goyo Elkins who reviewed the assessment and plan. Chart, medications, labs, vital signs reviewed. Dictation was accomplished with the use of [employer] voice recognition software, prone to medical misidentifications and grammatical errors. This is unintentional and the practitioner does try to identify and correct these, but some could still be present. Please do not hesitate to contact practitioner for clarification. All questions answered to patients satisfaction. Patient verbalized understanding of diagnosis and treatments explained. To call sooner prior to next visit it any questions/concerns arise. 07/03/2025 Hypothyroidism, unspecified type (ICD-10 - E03.9) 07/02/2025 Annual physical exam (ICD-10 - Z00.00) #Annual physical. Up-to-date on routine screenings and immunizations. Continue healthy diet and regular exercise. PHQ-9 . AUDIT-C . #Stabbing headache syndrome. Much improved on verapamil 120 mg extended release. She is followed by neurology and has upcoming appointment on the . She is having trouble getting her refill on this medication through their office. She will be leaving for [place] in 10 days. Refill sent today. She will discuss further with their office at their follow-up visit. #Dysuria. Symptoms time 1 to 2 days. No fever, abdominal pain or back pain. Push fluids will get UA and culture today follow-up pending results. Follow-up sooner with any new or worsening symptoms. Comprehensive discussion was done on the following. 1. Nutrition: It is important to follow a healthy diet based on lots of vegetables and legumes and good fat. Avoid processed food and processed carbohydrates. Learn to prepare your own meals. Learn to read labels and avoid high fructose corn syrup, processed chemicals added to increase shelf life and preprepared meals. Avoid fast foods. Learn to eat slowly and plan meals for a week. Try to count calories and be mindful off daily calorie intake. Get into the habit of keeping an eye on your weight by using an appropriate scale. Learn to log exercise and discussed fitness Apps like [employer] which can help keep log off calories taken versus calories burned. Local food should be preferred. Discussed Dirty Dozen Versus Clean Fifteen. Discussed healthy supplements like fish oil, Tumeric, Curcumin, Melatonin, Resveratrol, Probiotics, Vitamin-D, Alpha-Lipoic acid, Vitamin-D and coconut oil. 2. It is important to exercise regularly. Is a good habit to walk at least 30-45 minutes a day. Gentle weightlifting with standard precautions to protect the back. Finding activity like cycling or hiking and get into the habit of engaging in it. Stretching before and after the exercises important. It is also important to contact me if there are any problems like shortness of breath, chest pain, back pain and joint or muscle pain associated with the exercise. 3. Discussed age appropriate screening guidelines. Colonoscopy needs to start at age 50 with stool for occult blood as appropriate. There is a new test that can test for genetic abnormalities in the stool sample. This would not replace a colonoscopy but could be used as a screening tool for patients who do not want a colonoscopy. We discussed the importance of early detection of colon cancer. 4. Discussed current guidelines with respect to breast examination, mammogram and pap smear for early detection of breast and cervical cancer. Patient advised to follow up with these appointments. 5. Discussed safe driving and no use of smart phone while driving 6. Age-appropriate immunizations were discussed. A tetanus booster is needed every 10 years. Flu vaccine is recommended every year just before the start of the flu season. Shingles vaccine is recommended after age 50 but not all insurances cover it.Pneumonia vaccine is given after age 65 unless there are certain comorbidities for which it is started earlier. 7. Diagnostic labs were discussed. These could include CBC CMP and lipids with fasting blood glucose and insulin levels. Vitamin D and hemoglobin A1c testing might be appropriate. Case discussed with collaborating physician Goyo Elkins who reviewed the assessment and plan. Chart, medications, labs, vital signs reviewed. Dictation was accomplished with the use of [employer] voice recognition software, prone to medical misidentifications and grammatical errors. This is unintentional and the practitioner does try to identify and correct these, but some could still be present. Please do not hesitate to contact practitioner for clarification. All questions answered to patients satisfaction. Patient verbalized understanding of diagnosis and treatments explained. To call sooner prior to next visit it any questions/concerns arise. 07/02/2025 Burning with urination (ICD-10 - R30.0) #Annual physical. Up-to-date on routine screenings and immunizations. Continue healthy diet and regular exercise. PHQ-9 . AUDIT-C 0. #Stabbing headache syndrome. Much improved on verapamil 120 mg extended release. She is followed by neurology and has upcoming appointment on the . She is having trouble getting her refill on this medication through their office. She will be leaving for [place] in 10 days. Refill sent today. She will discuss further with their office at their follow-up visit. #Dysuria. Symptoms time 1 to 2 days. No fever, abdominal pain or back pain. Push fluids will get UA and culture today follow-up pending results. Follow-up sooner with any new or worsening symptoms. Comprehensive discussion was done on the following. 1. Nutrition: It is important to follow a healthy diet based on lots of vegetables and legumes and good fat. Avoid processed food and processed carbohydrates. Learn to prepare your own meals. Learn to read labels and avoid high fructose corn syrup, processed chemicals added to increase shelf life and preprepared meals. Avoid fast foods. Learn to eat slowly and plan meals for a week. Try to count calories and be mindful off daily calorie intake. Get into the habit of keeping an eye on your weight by using an appropriate scale. Learn to log exercise and discussed fitness Apps like [employer] which can help keep log off calories taken versus calories burned. Local food should be preferred. Discussed Dirty Dozen Versus Clean Fifteen. Discussed healthy supplements like fish oil, Tumeric, Curcumin, Melatonin, Resveratrol, Probiotics, Vitamin-D, Alpha-Lipoic acid, Vitamin-D and coconut oil. 2. It is important to exercise regularly. Is a good habit to walk at least 30-45 minutes a day. Gentle weightlifting with standard precautions to protect the back. Finding activity like cycling or hiking and get into the habit of engaging in it. Stretching before and after the exercises important. It is also important to contact me if there are any problems like shortness of breath, chest pain, back pain and joint or muscle pain associated with the exercise. 3. Discussed age appropriate screening guidelines. Colonoscopy needs to start at age 50 with stool for occult blood as appropriate. There is a new test that can test for genetic abnormalities in the stool sample. This would not replace a colonoscopy but could be used as a screening tool for patients who do not want a colonoscopy. We discussed the importance of early detection of colon cancer. 4. Discussed current guidelines with respect to breast examination, mammogram and pap smear for early detection of breast and cervical cancer. Patient advised to follow up with these appointments. 5. Discussed safe driving and no use of smart phone while driving 6. Age-appropriate immunizations were discussed. A tetanus booster is needed every 10 years. Flu vaccine is recommended every year just before the start of the flu season. Shingles vaccine is recommended after age 50 but not all insurances cover it.Pneumonia vaccine is given after age 65 unless there are certain comorbidities for which it is started earlier. 7. Diagnostic labs were discussed. These could include CBC CMP and lipids with fasting blood glucose and insulin levels. Vitamin D and hemoglobin A1c testing might be appropriate. Case discussed with collaborating physician Goyo Elkins who reviewed the assessment and plan. Chart, medications, labs, vital signs reviewed. Dictation was accomplished with the use of [employer] voice recognition software, prone to medical misidentifications and grammatical errors. This is unintentional and the practitioner does try to identify and correct these, but some could still be present. Please do not hesitate to contact practitioner for clarification. All questions answered to patients satisfaction. Patient verbalized understanding of diagnosis and treatments explained. To call sooner prior to next visit it any questions/concerns arise. 01/16/2025 Osteoporosis without current pathological fracture, unspecified osteoporosis type (ICD-10 - M81.0) #Hypothyroidism. Currently on levothyroxine 88 mcg 7 days a week. TSH in range. Will recheck again in 3 months. #Stabbing headache syndrome. Followed by neurology. Recently started on verapamil 120 mg XR at bedtime. S #Osteoporosis. Currently on Raloxifene. #Frequent Bowel movements. She had colonoscopy done yesterday which showed mild diverticulosis and was otherwise normal. They did do random biopsies and those results are still pending. Advised to follow-up with gastroenterology to discuss next steps. We did discuss FODMAP diet as a potential option. Case discussed with collaborating physician Goyo Elkins who reviewed the assessment and plan. Chart, medications, labs, vital signs reviewed. Dictation was accomplished with the use of [employer] voice recognition software, prone to medical misidentifications and grammatical errors. This is unintentional and the practitioner does try to identify and correct these, but some could still be present. Please do not hesitate to contact practitioner for clarification. All questions answered to patients satisfaction. Patient verbalized understanding of diagnosis and treatments explained. To call sooner prior to next visit it any questions/concerns arise. 04/04/2025 Acute low back pain without sciatica, unspecified back pain laterality (ICD-10 - M54.50) #Nocturnal leg cramps. New onset in the past 10 days. No new activities or medications. Discussed importance of hydration. She is currently taking a magnesium supplement at bedtime. Will get updated labs and follow-up pending results. Discussed pushing fluids and stretching especially before bedtime. Also discussed good supportive footwear throughout the day. Follow-up pending results. #Microscopic colitis. Noted on biopsies taken during recent colonoscopy. She was started on budesonide tapering dose by GI and diarrhea has resolved. Will be tapering off in the next 2 weeks. Following with GI. #Low back pain. Recurrent low back pain with spasm intermittently every 1 to 2 months. Typically uses cyclobenzaprine and diclofenac as needed for 2 to 3 days during each episode. She has run out of medication and will be traveling. Will send refill to have on hand. Follow-up if symptoms should persist. #Hypothyroidism. Currently on levothyroxine 88 mcg 7 days a week. TSH in range. Will recheck again in 3 months. Case discussed with collaborating physician Goyo Elkins who reviewed the assessment and plan. Chart, medications, labs, vital signs reviewed. Dictation was accomplished with the use of [employer] voice recognition software, prone to medical misidentifications and grammatical errors. This is unintentional and the practitioner does try to identify and correct these, but some could still be present. Please do not hesitate to contact practitioner for clarification. All questions answered to patients satisfaction. Patient verbalized understanding of diagnosis and treatments explained. To call sooner prior to next visit it any questions/concerns arise. 12/06/2024 Osteoporosis without current pathological fracture, unspecified osteoporosis type (ICD-10 - M81.0) #Hypothyroidism. Currently on levothyroxine 88 mcg 6 days a week. Unfortunately TSH was not drawn with her recent labs. Will get updated levels today and follow-up pending results. She has had some looser bowel movements this past week. #Stabbing headache syndrome. Followed by neurology. Recently started on verapamil. She gets 10-40 episodes a day. Medication has helped some but they have not resolved. #Osteoporosis. Currently on Raloxifene. Schedule updated colonoscopy. Follow-up with me in 6 months for annual physical sooner with any concerns. Case discussed with collaborating physician Goyo Elkins who reviewed the assessment and plan. Chart, medications, labs, vital signs reviewed. Dictation was accomplished with the use of [employer] voice recognition software, prone to medical misidentifications and grammatical errors. This is unintentional and the practitioner does try to identify and correct these, but some could still be present. Please do not hesitate to contact practitioner for clarification. All questions answered to patients satisfaction. Patient verbalized understanding of diagnosis and treatments explained. To call sooner prior to next visit it any questions/concerns arise. 09/19/2024 Vitamin D deficiency (ICD-10 - E55.9) #OA Left thumb. X-ray done last week was consistent with osteoarthritis. She did complete 5 days of prednisone with significant improvement of symptoms. About 60% better at this time. Will continue [id number]-[id number] anti-inflammatories as needed and splint. Will refer to hand specialist for consideration of steroid injection if symptoms persist. Discussed activity modification. Monitor for any new or worsening symptoms follow-up as needed. #Hypothyroidism. Will be due for updated labs prior to her next visit. #Vit D deficiency- CHeck labs prior to next visit in November. Case discussed with collaborating physician Goyo Elkins who reviewed the assessment and plan. Chart, medications, labs, vital signs reviewed. Dictation was accomplished with the use of [employer] voice recognition software, prone to medical misidentifications and grammatical errors. This is unintentional and the practitioner does try to identify and correct these, but some could still be present. Please do not hesitate to contact practitioner for clarification. All questions answered to patients satisfaction. Patient verbalized understanding of diagnosis and treatments explained. To call sooner prior to next visit it any questions/concerns arise. 09/19/2024 Hypothyroid (ICD-10 - E03.9) #OA Left thumb. X-ray done last week was consistent with osteoarthritis. She did complete 5 days of prednisone with significant improvement of symptoms. About 60% better at this time. Will continue [id number] anti-inflammatories as needed and splint. Will refer to hand specialist for consideration of steroid injection if symptoms persist. Discussed activity modification. Monitor for any new or worsening symptoms follow-up as needed. #Hypothyroidism. Will be due for updated labs prior to her next visit. #Vit D deficiency- CHeck labs prior to next visit in November. Case discussed with collaborating physician Goyo Elkins who reviewed the assessment and plan. Chart, medications, labs, vital signs reviewed. Dictation was accomplished with the use of [employer] voice recognition software, prone to medical misidentifications and grammatical errors. This is unintentional and the practitioner does try to identify and correct these, but some could still be present. Please do not hesitate to contact practitioner for clarification. All questions answered to patients satisfaction. Patient verbalized understanding of diagnosis and treatments explained. To call sooner prior to next visit it any questions/concerns arise. 04/04/2025 Hypothyroidism, unspecified (ICD-10 - E03.9) #Nocturnal leg cramps. New onset in the past 10 days. No new activities or medications. Discussed importance of hydration. She is currently taking a magnesium supplement at bedtime. Will get updated labs and follow-up pending results. Discussed pushing fluids and stretching especially before bedtime. Also discussed good supportive footwear throughout the day. Follow-up pending results. #Microscopic colitis. Noted on biopsies taken during recent colonoscopy. She was started on budesonide tapering dose by GI and diarrhea has resolved. Will be tapering off in the next 2 weeks. Following with GI. #Low back pain. Recurrent low back pain with spasm intermittently every 1 to 2 months. Typically uses cyclobenzaprine and diclofenac as needed for 2 to 3 days during each episode. She has run out of medication and will be traveling. Will send refill to have on hand. Follow-up if symptoms should persist. #Hypothyroidism. Currently on levothyroxine 88 mcg 7 days a week. TSH in range. Will recheck again in 3 months. Case discussed with collaborating physician Goyo Elkins who reviewed the assessment and plan. Chart, medications, labs, vital signs reviewed. Dictation was accomplished with the use of [employer] voice recognition software, prone to medical misidentifications and grammatical errors. This is unintentional and the practitioner does try to identify and correct these, but some could still be present. Please do not hesitate to contact practitioner for clarification. All questions answered to patients satisfaction. Patient verbalized understanding of diagnosis and treatments explained. To call sooner prior to next visit it any questions/concerns arise. 01/16/2025 Diarrhea, unspecified type (ICD-10 - R19.7) #Hypothyroidism. Currently on levothyroxine 88 mcg 7 days a week. TSH in range. Will recheck again in 3 months. #Stabbing headache syndrome. Followed by neurology. Recently started on verapamil 120 mg XR at bedtime. S #Osteoporosis. Currently on Raloxifene. #Frequent Bowel movements. She had colonoscopy done yesterday which showed mild diverticulosis and was otherwise normal. They did do random biopsies and those results are still pending. Advised to follow-up with gastroenterology to discuss next steps. We did discuss FODMAP diet as a potential option. Case discussed with collaborating physician Goyo Elkins who reviewed the assessment and plan. Chart, medications, labs, vital signs reviewed. Dictation was accomplished with the use of [employer] voice recognition software, prone to medical misidentifications and grammatical errors. This is unintentional and the practitioner does try to identify and correct these, but some could still be present. Please do not hesitate to contact practitioner for clarification. All questions answered to patients satisfaction. Patient verbalized understanding of diagnosis and treatments explained. To call sooner prior to next visit it any questions/concerns arise. 07/02/2025 Encounter for screening for other disorder (ICD-10 - Z13.89) #Annual physical. Up-to-date on routine screenings and immunizations. Continue healthy diet and regular exercise. PHQ-9 . AUDIT-C 0. #Stabbing headache syndrome. Much improved on verapamil 120 mg extended release. She is followed by neurology and has upcoming appointment on the . She is having trouble getting her refill on this medication through their office. She will be leaving for [place] in 10 days. Refill sent today. She will discuss further with their office at their follow-up visit. #Dysuria. Symptoms time 1 to 2 days. No fever, abdominal pain or back pain. Push fluids will get UA and culture today follow-up pending results. Follow-up sooner with any new or worsening symptoms. Comprehensive discussion was done on the following. 1. Nutrition: It is important to follow a healthy diet based on lots of vegetables and legumes and good fat. Avoid processed food and processed carbohydrates. Learn to prepare your own meals. Learn to read labels and avoid high fructose corn syrup, processed chemicals added to increase shelf life and preprepared meals. Avoid fast foods. Learn to eat slowly and plan meals for a week. Try to count calories and be mindful off daily calorie intake. Get into the habit of keeping an eye on your weight by using an appropriate scale. Learn to log exercise and discussed fitness Apps like Enohm which can help keep log off calories taken versus calories burned. Local food should be preferred. Discussed Dirty Dozen Versus Clean Fifteen. Discussed healthy supplements like fish oil, Tumeric, Curcumin, Melatonin, Resveratrol, Probiotics, Vitamin-D, Alpha-Lipoic acid, Vitamin-D and coconut oil. 2. It is important to exercise regularly. Is a good habit to walk at least 30-45 minutes a day. Gentle weightlifting with standard precautions to protect the back. Finding activity like cycling or hiking and get into the habit of engaging in it. Stretching before and after the exercises important. It is also important to contact me if there are any problems like shortness of breath, chest pain, back pain and joint or muscle pain associated with the exercise. 3. Discussed age appropriate screening guidelines. Colonoscopy needs to start at age 50 with stool for occult blood as appropriate. There is a new test that can test for genetic abnormalities in the stool sample. This would not replace a colonoscopy but could be used as a screening tool for patients who do not want a colonoscopy. We discussed the importance of early detection of colon cancer. 4. Discussed current guidelines with respect to breast examination, mammogram and pap smear for early detection of breast and cervical cancer. Patient advised to follow up with these appointments. 5. Discussed safe driving and no use of smart phone while driving 6. Age-appropriate immunizations were discussed. A tetanus booster is needed every 10 years. Flu vaccine is recommended every year just before the start of the flu season. Shingles vaccine is recommended after age 50 but not all insurances cover it.Pneumonia vaccine is given after age 65 unless there are certain comorbidities for which it is started earlier. 7. Diagnostic labs were discussed. These could include CBC CMP and lipids with fasting blood glucose and insulin levels. Vitamin D and hemoglobin A1c testing might be appropriate. Case discussed with collaborating physician Goyo Elkins who reviewed the assessment and plan. Chart, medications, labs, vital signs reviewed. Dictation was accomplished with the use of [employer] voice recognition software, prone to medical misidentifications and grammatical errors. This is unintentional and the practitioner does try to identify and correct these, but some could still be present. Please do not hesitate to contact practitioner for clarification. All questions answered to patients satisfaction. Patient verbalized understanding of diagnosis and treatments explained. To call sooner prior to next visit it any questions/concerns arise. 07/02/2025 Alcohol screening (ICD-10 - Z13.39) #Annual physical. Up-to-date on routine screenings and immunizations. Continue healthy diet and regular exercise. PHQ-9 . AUDIT-C . #Stabbing headache syndrome. Much improved on verapamil 120 mg extended release. She is followed by neurology and has upcoming appointment on the . She is having trouble getting her refill on this medication through their office. She will be leaving for [place] in 10 days. Refill sent today. She will discuss further with their office at their follow-up visit. #Dysuria. Symptoms time 1 to 2 days. No fever, abdominal pain or back pain. Push fluids will get UA and culture today follow-up pending results. Follow-up sooner with any new or worsening symptoms. Comprehensive discussion was done on the following. 1. Nutrition: It is important to follow a healthy diet based on lots of vegetables and legumes and good fat. Avoid processed food and processed carbohydrates. Learn to prepare your own meals. Learn to read labels and avoid high fructose corn syrup, processed chemicals added to increase shelf life and preprepared meals. Avoid fast foods. Learn to eat slowly and plan meals for a week. Try to count calories and be mindful off daily calorie intake. Get into the habit of keeping an eye on your weight by using an appropriate scale. Learn to log exercise and discussed fitness Apps like Enohm which can help keep log off calories taken versus calories burned. Local food should be preferred. Discussed Dirty Dozen Versus Clean Fifteen. Discussed healthy supplements like fish oil, Tumeric, Curcumin, Melatonin, Resveratrol, Probiotics, Vitamin-D, Alpha-Lipoic acid, Vitamin-D and coconut oil. 2. It is important to exercise regularly. Is a good habit to walk at least 30-45 minutes a day. Gentle weightlifting with standard precautions to protect the back. Finding activity like cycling or hiking and get into the habit of engaging in it. Stretching before and after the exercises important. It is also important to contact me if there are any problems like shortness of breath, chest pain, back pain and joint or muscle pain associated with the exercise. 3. Discussed age appropriate screening guidelines. Colonoscopy needs to start at age 50 with stool for occult blood as appropriate. There is a new test that can test for genetic abnormalities in the stool sample. This would not replace a colonoscopy but could be used as a screening tool for patients who do not want a colonoscopy. We discussed the importance of early detection of colon cancer. 4. Discussed current guidelines with respect to breast examination, mammogram and pap smear for early detection of breast and cervical cancer. Patient advised to follow up with these appointments. 5. Discussed safe driving and no use of smart phone while driving 6. Age-appropriate immunizations were discussed. A tetanus booster is needed every 10 years. Flu vaccine is recommended every year just before the start of the flu season. Shingles vaccine is recommended after age 50 but not all insurances cover it.Pneumonia vaccine is given after age 65 unless there are certain comorbidities for which it is started earlier. 7. Diagnostic labs were discussed. These could include CBC CMP and lipids with fasting blood glucose and insulin levels. Vitamin D and hemoglobin A1c testing might be appropriate. Case discussed with collaborating physician Goyo Elkins who reviewed the assessment and plan. Chart, medications, labs, vital signs reviewed. Dictation was accomplished with the use of [employer] voice recognition software, prone to medical misidentifications and grammatical errors. This is unintentional and the practitioner does try to identify and correct these, but some could still be present. Please do not hesitate to contact practitioner for clarification. All questions answered to patients satisfaction. Patient verbalized understanding of diagnosis and treatments explained. To call sooner prior to next visit it any questions/concerns arise. 04/04/2025 Encounter for examination of blood pressure without abnormal findings (ICD-10 - Z01.30) #Nocturnal leg cramps. New onset in the past 10 days. No new activities or medications. Discussed importance of hydration. She is currently taking a magnesium supplement at bedtime. Will get updated labs and follow-up pending results. Discussed pushing fluids and stretching especially before bedtime. Also discussed good supportive footwear throughout the day. Follow-up pending results. #Microscopic colitis. Noted on biopsies taken during recent colonoscopy. She was started on budesonide tapering dose by GI and diarrhea has resolved. Will be tapering off in the next 2 weeks. Following with GI. #Low back pain. Recurrent low back pain with spasm intermittently every 1 to 2 months. Typically uses cyclobenzaprine and diclofenac as needed for 2 to 3 days during each episode. She has run out of medication and will be traveling. Will send refill to have on hand. Follow-up if symptoms should persist. #Hypothyroidism. Currently on levothyroxine 88 mcg 7 days a week. TSH in range. Will recheck again in 3 months. Case discussed with collaborating physician Goyo Elkins who reviewed the assessment and plan. Chart, medications, labs, vital signs reviewed. Dictation was accomplished with the use of [employer] voice recognition software, prone to medical misidentifications and grammatical errors. This is unintentional and the practitioner does try to identify and correct these, but some could still be present. Please do not hesitate to contact practitioner for clarification. All questions answered to patients satisfaction. Patient verbalized understanding of diagnosis and treatments explained. To call sooner prior to next visit it any questions/concerns arise. 07/02/2025 Encounter for examination of blood pressure without abnormal findings (ICD-10 - Z01.30) #Annual physical. Up-to-date on routine screenings and immunizations. Continue healthy diet and regular exercise. PHQ-9 . AUDIT-C . #Stabbing headache syndrome. Much improved on verapamil 120 mg extended release. She is followed by neurology and has upcoming appointment on the . She is having trouble getting her refill on this medication through their office. She will be leaving for [place] in 10 days. Refill sent today. She will discuss further with their office at their follow-up visit. #Dysuria. Symptoms time 1 to 2 days. No fever, abdominal pain or back pain. Push fluids will get UA and culture today follow-up pending results. Follow-up sooner with any new or worsening symptoms. Comprehensive discussion was done on the following. 1. Nutrition: It is important to follow a healthy diet based on lots of vegetables and legumes and good fat. Avoid processed food and processed carbohydrates. Learn to prepare your own meals. Learn to read labels and avoid high fructose corn syrup, processed chemicals added to increase shelf life and preprepared meals. Avoid fast foods. Learn to eat slowly and plan meals for a week. Try to count calories and be mindful off daily calorie intake. Get into the habit of keeping an eye on your weight by using an appropriate scale. Learn to log exercise and discussed fitness Apps like Enohm which can help keep log off calories taken versus calories burned. Local food should be preferred. Discussed Dirty Dozen Versus Clean Fifteen. Discussed healthy supplements like fish oil, Tumeric, Curcumin, Melatonin, Resveratrol, Probiotics, Vitamin-D, Alpha-Lipoic acid, Vitamin-D and coconut oil. 2. It is important to exercise regularly. Is a good habit to walk at least 30-45 minutes a day. Gentle weightlifting with standard precautions to protect the back. Finding activity like cycling or hiking and get into the habit of engaging in it. Stretching before and after the exercises important. It is also important to contact me if there are any problems like shortness of breath, chest pain, back pain and joint or muscle pain associated with the exercise. 3. Discussed age appropriate screening guidelines. Colonoscopy needs to start at age 50 with stool for occult blood as appropriate. There is a new test that can test for genetic abnormalities in the stool sample. This would not replace a colonoscopy but could be used as a screening tool for patients who do not want a colonoscopy. We discussed the importance of early detection of colon cancer. 4. Discussed current guidelines with respect to breast examination, mammogram and pap smear for early detection of breast and cervical cancer. Patient advised to follow up with these appointments. 5. Discussed safe driving and no use of smart phone while driving 6. Age-appropriate immunizations were discussed. A tetanus booster is needed every 10 years. Flu vaccine is recommended every year just before the start of the flu season. Shingles vaccine is recommended after age 50 but not all insurances cover it.Pneumonia vaccine is given after age 65 unless there are certain comorbidities for which it is started earlier. 7. Diagnostic labs were discussed. These could include CBC CMP and lipids with fasting blood glucose and insulin levels. Vitamin D and hemoglobin A1c testing might be appropriate. Case discussed with collaborating physician Goyo Elkins who reviewed the assessment and plan. Chart, medications, labs, vital signs reviewed. Dictation was accomplished with the use of [employer] voice recognition software, prone to medical misidentifications and grammatical errors. This is unintentional and the practitioner does try to identify and correct these, but some could still be present. Please do not hesitate to contact practitioner for clarification. All questions answered to patients satisfaction. Patient verbalized understanding of diagnosis and treatments explained. To call sooner prior to next visit it any questions/concerns arise. Plan Of Treatment Pending Test Test Name Order Date X ray : Chest with 2 views 02/01/2024 TSH+Free T4 07/14/2018 TSH+Free T4 01/12/2019 TSH+Free T4 08/08/2019 Lipid Panel 08/08/2019 Lipid Panel 01/12/2019 Comp. Metabolic Panel (14) 01/12/2019 Comp. Metabolic Panel (14) 08/08/2019 CBC 08/08/2019 Bone Density 06/05/2024 Urinalysis 08/08/2019 MRI : Brain without Contrast 08/10/2023 EKG 07/14/2018 CBC (COMPLETE BLOOD COUNT) 03/14/2018 CBC (COMPLETE BLOOD COUNT) 04/21/2021 COMPREHENSIVE METABOLIC PANEL 04/21/2021 COMPREHENSIVE METABOLIC PANEL 03/14/2018 CRP, HIGH SENSITIVITY 03/14/2018 FERRITIN 04/04/2025 HEMOGLOBIN A1C 03/14/2018 HEMOGLOBIN A1C 04/21/2021 LIPID PANEL 04/21/2021 LIPID PANEL 03/14/2018 LYME DISEASE PCR, BLOOD 06/11/2021 T3, FREE 10/22/2020 T3, TOTAL 10/22/2020 T4, TOTAL 01/13/2021 TSH 01/13/2021 TSH 04/21/2021 TSH 04/04/2025 TSH 01/16/2025 TSH 12/13/2024 TSH 12/06/2024 TSH 09/19/2024 TSH WITH REFLEX TO FT4 08/13/2020 TSH WITH REFLEX TO FT4 03/14/2018 URINALYSIS, COMPLETE 03/14/2018 Thyroid Stimulating Hormone 07/03/2025 XR Finger LT Thumb 09/12/2024 URINE CULTURE 07/02/2025 UA WITH CULTURE IF INDICATED 07/02/2025 MAGNESIUM 04/04/2025 LIPID PANEL, STANDARD 09/19/2024 LIPID PANEL, STANDARD 11/24/2023 LIPID PANEL, STANDARD 06/05/2024 LIPID PANEL, STANDARD 07/21/2022 LIPID PANEL, STANDARD 12/14/2022 LIPID PANEL, STANDARD 04/20/2022 COMPREHENSIVE METABOLIC PANEL 04/20/2022 COMPREHENSIVE METABOLIC PANEL 12/14/2022 COMPREHENSIVE METABOLIC PANEL 11/24/2023 COMPREHENSIVE METABOLIC PANEL 07/21/2022 COMPREHENSIVE METABOLIC PANEL 06/05/2024 COMPREHENSIVE METABOLIC PANEL 04/04/2025 COMPREHENSIVE METABOLIC PANEL 09/19/2024 MAGNESIUM 07/26/2024 CBC (INCLUDES DIFF/PLT) 04/04/2025 CBC (INCLUDES DIFF/PLT) 06/05/2024 CBC (INCLUDES DIFF/PLT) 07/21/2022 CBC (INCLUDES DIFF/PLT) 11/24/2023 CBC (INCLUDES DIFF/PLT) 12/14/2022 CBC (INCLUDES DIFF/PLT) 04/20/2022 CBC (INCLUDES DIFF/PLT) 09/19/2024 URINALYSIS, COMPLETE 04/20/2022 URINALYSIS, COMPLETE 11/24/2023 URINALYSIS, COMPLETE 07/21/2022 URINALYSIS, COMPLETE 12/14/2022 URINALYSIS, COMPLETE 06/05/2024 T4, FREE 12/14/2022 T4, FREE 07/21/2022 T4, FREE 08/12/2021 T4, FREE 04/20/2022 TSH 08/12/2021 TSH 04/20/2022 TSH 07/21/2022 TSH 12/14/2022 TSH 05/24/2023 TSH 11/24/2023 VITAMIN D,25-OH,TOTAL,IA 06/05/2024 VITAMIN D,25-OH,TOTAL,IA 04/20/2022 VITAMIN D,25-OH,TOTAL,IA 09/19/2024 COMPLETE URINALYSIS 04/21/2021 Next Appt Details Provider Name:Debby Macias, 0 10/17/2025 08:30:00 AM, [address] [facility], [address], [id number], Provider Name:Debby Macias, 0 07/09/2026 08:00:00 AM, [address] [facility], [address], [id number], Insurance Providers Payer Name Payer Address Payer Phone Subscriber Number Group Number Insured Name Patient Relationship to Insured Coverage Start Date Coverage End Date Medicare Part B J14 [address] [place] [address] [id number] FELIX PARHAM Self - patient is the insured [employer] [address] [place] [address] [id number] FELIX PARHAM Self - patient is the insured Medical (General) History Medical History History ICD Code Hypothyroidism osteoporosis Surgical History Surgery Date(Month/Year) tubal ligation rotator cuff tear repair colonoscopy 2016
== END 2025-07-09 08:43 | disposition home or self-care (01) ==
LOC: HO.HSM 08:28
PROVIDERS: PCP Internal Medicine; Referring Provider Internal Medicine; Visit Provider Psychiatry & Neurology Neurology
DX: G44.85 Primary stabbing headache (principal); R25.1 Tremor, unspecified; G43.009 Migraine without aura, not intractable, without status migrainosus
CPT/HCPCS: 99214

== ENCOUNTER → 2025-07-09 08:27 | Outpatient (BNVA) | payer MEDICARE, SELFPAY | PROVIDERS: PCP Internal Medicine; Referring Provider Internal Medicine; Visit Provider Psychiatry & Neurology Neurology | DX: G44.85 Primary stabbing headache (principal); R25.1 Tremor, unspecified; G43.009 Migraine without aura, not intractable, without status migrainosus | CPT/HCPCS: 99212 ==